=== PATIENT | female | born 1950 | race Caucasian/White ===

== ENCOUNTER 2017-06-14 05:26 | Day surgery (SDC) | payer MEDICARE, BC ==
[2017-06-14] MEDS ORDERED: Dextrose 5%-Lactated Ringers 1,000 ML IV SCH (06:00)
[2017-06-14] MEDS ORDERED: Bupivacaine 0.5% 50 ML MDV ONE (06:39)
[2017-06-14] MEDS ORDERED: Lidocaine 1% with EPINEPHrine 1:100,000 50 ML MDV ONE (06:39)
[2017-06-14] MEDS ORDERED: Midazolam 1 MG/ML 2 ML SDV ONE (06:57)
[2017-06-14] MEDS ORDERED: Propofol 200 MG/20 ML SDV ONE (06:57)
[2017-06-14] MEDS ORDERED: fentaNYL 100 MCG/2 ML SDV ONE (06:57)
[2017-06-14 09:12] VITALS: BP 112/58
--- NOTE | 2017-06-23 14:06 | OR ---
DATE OF PROCEDURE: 06/14/2017 PREOPERATIVE DIAGNOSIS: Right cervical lymphadenopathy. 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 OPERATIVE PROCEDURE: Exploration of right neck with: 1. Excision of probable ectopic parotid gland mass (11512). 2. Right cervical lymph node biopsy ([id number]). ANESTHESIA: Local plus IV sedation. ASSISTANTS: 1. ANDRES [place]. 2. ANDRES Nuñez. INDICATION FOR PROCEDURE: A 66-year-old presenting with what appeared to be an enlarged lymph node located just inferior to the lower edge of the parotid gland in the right neck. Plan is to proceed with an excision of this. Potential risks including bleeding, infection, possible recurrence of the process, and injury to the nerves in the area were all reviewed, and the patient wishes to proceed. DETAILS OF PROCEDURE: The patient was taken to the operating room and placed in the supine position with the neck extending some toward the right side. The ultrasound was used to confirm the presence of the lymph node as seen on the preoperative imaging. That area was then prepped and draped. A linear incision in the skin lines in the upper neck at a point just posterior to the lower edge of the parotid gland was made and carried down somewhat inferiorly. This was carried down through the skin, subcutaneous tissue, and the platysmal layers, and following this, the dissection came onto the area of the lymph node. There appeared to be some attachment of a mass-like effect, more or less extending with a very tenuous loose attachment to the parotid gland suggestive of some ectopic parotid gland tissue. This was excised along with the adjacent lymph node, and this sent as a unified specimen with the excision then being accomplished with electrocautery as needed. The area was inspected. There was no additional lymphadenopathy present and there were no additional palpable abnormalities within the parotid gland. 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 An edge of it was cut and sent for culture, and it did have a somewhat fleshy appearance, so this would also conceivably be a lymphoma at this point as well. The incision was then closed with 3-0 and 4-0 Vicryl stitch deep and a 4-0 Vicryl subcuticular stitch. Dressing was applied. The patient was taken to the recovery room in satisfactory condition. Augie Mcintosh MD /[id number]
== END 2017-06-14 09:53 | disposition home or self-care (01) ==
LOC: JP.SDS 05:26
PROVIDERS: ATTEND Surgery
DX: D36.0 Benign neoplasm of lymph nodes (principal); F32.9 Major depressive disorder, single episode, unspecified; Z88.8 Allergy status to other drugs, medicaments and biological substances
CPT/HCPCS: 38510; 42410; 76998; 87015; 87070; 87102; 87116; 87205; 87206; 88305; J2250; J2704; J3010; J7042

== ENCOUNTER 2019-12-01 16:43 | Emergency (ER) | payer MEDICARE ==
[2019-12-01 17:01] VITALS: BP 155/68; PULSE 87
--- NOTE | 2019-12-01 17:24 | EDM.PDOC ---
ED HPI GENERAL MEDICAL PROBLEM - General Chief Complaint: Lower Extremity Injury/Pain Stated Complaint: LEFT FOOT TROUBLE Time Seen by Provider: 12/01/19 17:10 Source of Information: Reports: Patient, Old Records, Provider History Limitations: Reports: No Limitations - History of Present Illness INITIAL COMMENTS - FREE TEXT/NARRATIVE: 68 yo female saw a magnetic prospecting supervisor earlier today for a skin condition on her feet and elbows. This was biopsied today. The magnetic prospecting supervisor was concerned that Kvng had a cellulitis on her L foot due to the presence of redness and increased warmth that began this past Saturday and has progressed. There has not been a fever or chills. She is not diabetic by hx. Onset: Gradual Onset Date: 11/28/19 Duration: Day(s):, Getting Worse Location: Reports: Lower Extremity, Left Quality: Reports: Dull Severity: Mild Improves with: Reports: None Worsens with: Reports: Other (time, and walking on it is more uncomfortable.) Context: Reports: Other (See HPI) Associated Symptoms: Reports: Rash (both feet and elbows). 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: Other (see below) (none) Left Feet Pain Score (Numeric/FACES): 10 - Related Data Allergies Allergy/AdvReac Type Severity Reaction Status Date / Time sertraline [From Zoloft] Allergy Diarrhea Verified 01/19/18 19:29 Home Meds: Home Meds oxyCODONE HCl/Acetaminophen [oxyCODONE-Acetaminophen 5-325] 1 tab PO Q6HR PRN 11/12/12 [History] traZODone 100 mg PO BEDTIME PRN 11/12/12 [History] Multivitamins,Ther w-Minerals [Therapeutic Vitamin & Mineral] 1 each PO DAILY 12/12/12 [History] Aspirin [Adult Low Dose Aspirin EC] 81 mg PO DAILY 07/07/14 [History] Sulfamethoxazole/Trimethoprim [Bactrim Ds Tablet] 1 each PO Q12H #20 tablet 12/01/19 [Rx] cephALEXin [Cephalexin] 500 mg PO QID #40 tablet 12/01/19 [Rx] Past Medical History HEENT History: Reports: Impaired 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: Musculoskeletal History: Reports: Other (See Below) Other Musculoskeletal History: fx pelvis Psychiatric History: Reports: Depression Oncologic (Cancer) History: Reports: Breast - Infectious Disease History Infectious Disease History: Reports: Chicken Pox - Past Surgical History GI Surgical History: Reports: Cholecystectomy Social & Family History - Family History Family Medical History: Unobtainable - Tobacco Use Smoking Status *Q: Current Every Day Smoker Years of Tobacco use: 45 Packs/Tins Daily: 1 - Caffeine Use Caffeine Use: Reports: Coffee - Alcohol Use Days Per Week of Alcohol Use: 7 Number of Drinks Per Day: 2 Total Drinks Per Week: 14 - Recreational Drug Use Recreational Drug Use: No Review of Systems - Review of Systems Review Of Systems: Comprehensive ROS is negative, except as noted in HPI. Constitutional: Reports: No Symptoms Skin: Reports: Rash (both feet and elbows, subacute), Erythema (L foot up to level of ankle). Denies: Wound Neurological: Reports: No Symptoms ED EXAM, GENERAL - Physical Exam Exam: See Below Exam Limited By: No Limitations General Appearance: Alert, WD/WN, No Apparent Distress Eye Exam: Right Eye: Normal Inspection Ears: Normal External Exam, Normal Canal, Hearing Grossly Normal Ear Exam: Bilateral Ear: Auricle Normal, Canal Normal Nose: Normal Inspection Throat/Mouth: Normal Inspection, Normal Voice Head: Atraumatic, Normocephalic Neck: Normal Inspection Respiratory/Chest: No Respiratory Distress, Lungs Clear, Normal Breath Sounds, No Accessory Muscle Use Cardiovascular: Regular Rate, Rhythm, No Edema Extremities: Increased Warmth (L foot), Redness (L foot). No: Pedal Edema, Limited Range of Motion Neurological: Alert, Oriented, CN II-XII Intact, Normal Cognition, No Motor/Sensory Deficits Psychiatric: Normal Affect, Normal Mood Skin Exam: Warm, Dry, Intact, Erythema (L foot), Increased Warmth (L foot), Rash (both feet and elbows). No: Normal Color, No Rash, Diaphoretic, Ecchymosis, Lymphangitis, Petechiae, Wound/Incision, Zoster-Like Rash Course - Vital Signs Last Recorded V/S: Last Vital Signs Temp 36.4 C 12/01/19 17:00 Pulse 87 12/01/19 17:00 Resp 16 12/01/19 17:00 BP 155/68 H 12/01/19 17:00 Pulse Ox 95 12/01/19 17:00 - Orders/Labs/Meds Orders: Active Orders 24 hr Category Date Time Status BASIC METABOLIC PANEL,BMP [CHEM] Stat Lab 12/01/19 17:29 Received CRP [C-REACTIVE PROTEIN] [CHEM] Stat Lab 12/01/19 17:29 Received Labs: Laboratory Tests 12/01/19 Range/Units 17:29 WBC 8.2 (4.5-11.0) K/uL RBC 4.43 (3.30-5.50) M/uL Hgb 12.3 (12.0-15.0) g/dL Hct 39.1 (36.0-48.0) % MCV 88 (80-98) fL MCH 28 (27-31) pg MCHC 32 (32-36) % Plt Count 294 (150-400) K/uL Meds: Medications Discontinued Medications Generic Name Dose Route Start Last Admin Trade Name Freq PRN Reason Stop Dose Admin Ceftriaxone Sodium 1 gm 12/01/19 17:42 Rocephin IM 12/01/19 17:43 ONETIME ONE Trimethoprim/Sulfamethoxazole 1 tab 12/01/19 17:42 Septra Ds PO 12/01/19 17:43 ONETIME ONE Departure - Departure Time of Disposition: 18:10 Disposition: Home, Self-Care 01 Condition: Fair Clinical Impression: Cellulitis of left foot - Discharge Information *PRESCRIPTION DRUG MONITORING PROGRAM REVIEWED*: Not Applicable *COPY OF PRESCRIPTION DRUG MONITORING REPORT IN PATIENT RIKKI: Not Applicable Prescriptions: Sulfamethoxazole/Trimethoprim [Bactrim Ds Tablet] 1 each PO Q12H #20 tablet cephALEXin [Cephalexin] 500 mg PO QID #40 tablet Instructions: Cellulitis, Adult, [id number] Referrals: Darian Calderon MD [Primary Care Provider] - Forms: ED Department Discharge Additional Instructions: Take TMP/SMZ every 12 hrs, next dose tomorrow morning until gone. Take cephalexin every 6 hrs next dose at suppertime tomorrow. Take acetaminophen as needed for pain control. Elevate your left foot above your heart as much as possible. Soaking your foot in warm soapy water several times a day is advised. Recheck in the next couple of days to make sure you are improving. Return here if a fever develops. Sepsis Event Note (ED) - Focused Exam Vital Signs: Vital Signs Temp Pulse Resp BP Pulse Ox 12/01/19 17:00 36.4 C 87 16 155/68 H 95 - My Orders Last 24 Hours: My Active Orders 12/01/19 17:29 BASIC METABOLIC PANEL,BMP [CHEM] Stat CRP [C-REACTIVE PROTEIN] [CHEM] Stat - Assessment/Plan Last 24 Hours: My Active Orders 12/01/19 17:29 BASIC METABOLIC PANEL,BMP [CHEM] Stat CRP [C-REACTIVE PROTEIN] [CHEM] Stat
[2019-12-01] MEDS ORDERED: Sulfamethoxazole/Trimethoprim 800-160 MG Tab PO ONE (17:42)
[2019-12-01] MEDS ORDERED: cefTRIAXone 1 GM Vial IM ONE (17:42)
[2019-12-01] MEDS ORDERED: Lidocaine 1% PF 2 ML SDV INJECT ONE (18:01)
== END 2019-12-01 18:21 | disposition home or self-care (01) ==
LOC: JP.ED 16:43
DX: L03.116 Cellulitis of left lower limb (principal); F17.210 Nicotine dependence, cigarettes, uncomplicated; Z88.8 Allergy status to other drugs, medicaments and biological substances; Z79.82 Long term (current) use of aspirin; Z79.899 Other long term (current) drug therapy; Z90.49 Acquired absence of other specified parts of digestive tract
CPT/HCPCS: 36415; 80048; 85027; 86140; 96372; 99283; A9270; J0696; J2001

== ENCOUNTER 2020-04-25 06:32 | Day surgery (SDC) | payer MEDICARE ==
[2020-04-25] MEDS ORDERED: Dextrose 5%-Lactated Ringers 1,000 ML IV SCH (06:45)
[2020-04-25] MEDS ORDERED: Propofol 200 MG/20 ML SDV ONE (07:26)
[2020-04-25] MEDS ORDERED: Midazolam 1 MG/ML 2 ML SDV ONE (07:26)
[2020-04-25] MEDS ORDERED: fentaNYL 100 MCG/2 ML SDV ONE (07:26)
[2020-04-25 09:35] VITALS: BP 133/72; PULSE 59
--- NOTE | 2020-05-01 11:37 | OR ---
DATE OF PROCEDURE: 04/25/2020 SURGEON: Augie Mcintosh MD PREOPERATIVE DIAGNOSIS: History of colon polyps and breast carcinoma. POSTOPERATIVE DIAGNOSIS: A single 2-mm recurrent rectal polyp. OPERATIVE PROCEDURE: Flexible colonoscopy with polypectomy by snare technique. ANESTHESIA: IV sedation. INDICATION FOR PROCEDURE: A 69-year-old female presenting for a followup screening colonoscopy. She has both history of colon polyps as well as history of breast carcinoma. Plan is to proceed with a flexible colonoscopy with biopsies and/or polypectomy as indicated. Potential risks including bleeding and perforation were discussed, and the patient wishes to proceed. DETAILS OF PROCEDURE: The patient was taken to the operating room and placed in a left lateral decubitus position. IV sedation was administered, after which the initial digital rectal exam was performed and was unremarkable. Colonoscope was then passed to the level of the rectum with retroflexion revealing uncomplicated hemorrhoidal columns. Scope was eventually passed to the level of the cecum. Prep was quite good with only a small amount of liquid stool being present. To that level, there were no diverticula and no areas of colitis. A single polyp was noted around 10 cm from the dentate line i.e. within the distal rectum. This measured around 2 mm and was excised by means of cautery snare technique. There were no areas of neoplastic changes evident. Good hemostasis of polypectomy site was seen, and the procedure was then concluded. If the present polyp is adenomatous, the patient should undergo a colonoscopy in 3 years. If it is hyperplastic or otherwise nonneoplastic, then the next colonoscopy should be in 5 years. Augie Mcintosh MD /[id number]
== END 2020-04-25 09:54 | disposition home or self-care (01) ==
LOC: JP.SDS 06:32
PROVIDERS: ATTEND Surgery
DX: Z12.11 Encounter for screening for malignant neoplasm of colon (principal); K62.1 Rectal polyp; Z85.3 Personal history of malignant neoplasm of breast; K64.9 Unspecified hemorrhoids
CPT/HCPCS: 88305; J2250; J2704; J3010; J7121

== ENCOUNTER 2020-11-24 07:37 | Day surgery (SDC) | payer MEDICARE ==
[2020-11-24] MEDS ORDERED: Sodium Chloride 0.9% 10 ML Syringe FLUSH PRN (08:00)
[2020-11-24 08:42] VITALS: BP 130/75; PULSE 72
--- NOTE | 2020-12-02 13:06 | OR ---
DATE OF PROCEDURE: 11/24/2020 SURGEON: Alpa Chester MD POSTOPERATIVE CARE: Postoperative care will be provided mainly at the [address] [place] [address] [facility] in conjunction with [facility]. PREOPERATIVE DIAGNOSIS: Cataract, left eye. POSTOPERATIVE DIAGNOSIS: Cataract, left eye. PROCEDURE: Phacoemulsification with intraocular lens placement, left eye. ANESTHESIA: Topical and intracameral. ESTIMATED BLOOD LOSS: Minimal. COMPLICATIONS: None. PATHOLOGY SPECIMENS: None. SURGICAL FINDINGS: None. INDICATION FOR PROCEDURE: The patient is a 69-year-old female with history of a visually significant cataract in the left eye, which interfered with activities of daily living. This consisted of a nuclear sclerosis cataract. Following careful discussion of the risks, benefits and alternatives to cataract extraction with intraocular lens placement including blindness and , the patient elected to proceed, and informed, written consent was obtained prior to the procedure. DESCRIPTION OF THE PROCEDURE: The patient was previously identified, and a gianni placed above the left eye. All sources, including the patient, indicated that the left eye was the correct eye. The patient was subsequently taken to the operating room where standard monitors were applied. The patient was then prepped and draped in the usual sterile fashion for ophthalmic surgery. Attention was first directed at the 12 o'clock position where a paracentesis port was fashioned. Shugar solution followed by Viscoat was instilled into the eye. Attention was then directed to the 8:30 position where a triplanar incision was made in a near-clear manner using a keratome. A continuous capsulorrhexis was then made using a combination of the cystotome and Utrata forceps. Hydrodissection was achieved using a balanced salt solution, and the lens rotated nicely. Phacoemulsification was then done using a modified [id number] technique without complication. Phaco time was 6.65 CDE. The remaining cortex was removed using the irrigation/aspiration handpiece. Provisc was then instilled into the eye. A Technis lens, model PCB00, at 16.0 diopters was then placed in the capsular bag using an [place] injector. The remaining viscoelastic was removed using the irrigation/aspiration forceps. All wounds were then checked and found to be watertight. The lid speculum and drapes were removed. Maxitrol ointment was placed in the patient's left eye, and the eye was shielded. The patient tolerated the procedure well. The patient was instructed to follow up tomorrow. All needle and sponge counts were correct at the end of the procedure. There were no surgical findings. Alpa Chester MD /[id number]
== END 2020-11-24 08:57 | disposition home or self-care (01) ==
LOC: JP.SDS 07:37
PROVIDERS: ATTEND Ophthalmology
DX: H26.9 Unspecified cataract (principal)
CPT/HCPCS: 66984; V2632

== ENCOUNTER 2020-12-15 06:56 | Day surgery (SDC) | payer MEDICARE ==
[2020-12-15] MEDS: Sodium Chloride 0.9% 10 ML Syringe FLUSH PRN (07:28)
[2020-12-15 08:51] VITALS: BP 136/70; PULSE 57
--- NOTE | 2020-12-16 13:47 | OR ---
DATE OF PROCEDURE: 12/15/2020 SURGEON: Alpa Chester MD POSTOPERATIVE CARE: Postoperative care will be provided mainly at the [address] [place] [address] [facility] in conjunction with [facility]. PREOPERATIVE DIAGNOSIS: Cataract, right eye. POSTOPERATIVE DIAGNOSIS: Cataract, right eye. PROCEDURE: Phacoemulsification with intraocular lens placement, right eye. ANESTHESIA: Topical and intracameral. ESTIMATED BLOOD LOSS: Minimal. COMPLICATIONS: None. PATHOLOGY SPECIMENS: None. SURGICAL FINDINGS: None. INDICATION FOR PROCEDURE: The patient is a 69-year-old female with history of a visually significant cataract in the right eye, which interfered with activities of daily living. This consisted of a nuclear sclerosis cataract. Following careful discussion of the risks, benefits and alternatives to cataract extraction with intraocular lens placement including blindness and , the patient elected to proceed, and informed, written consent was obtained prior to the procedure. DESCRIPTION OF THE PROCEDURE: The patient was previously identified, and a gianni placed above the right eye. All sources, including the patient, indicated that the right eye was the correct eye. The patient was subsequently taken to the operating room where standard monitors were applied. The patient was then prepped and draped in the usual sterile fashion for ophthalmic surgery. Attention was first directed at the 12 o'clock position where a paracentesis port was fashioned. Shugar solution followed by Viscoat was instilled into the eye. Attention was then directed to the 8:30 position where a triplanar incision was made in a near-clear manner using a keratome. A continuous capsulorrhexis was then made using a combination of the cystotome and Utrata forceps. Hydrodissection was achieved using a balanced salt solution, and the lens rotated nicely. Phacoemulsification was then done using a modified [id number] technique without complication. Phaco time was 6.55 CDE. The remaining cortex was removed using the irrigation/aspiration handpiece. Provisc was then instilled into the eye. A Technis lens, model DCB00, at 16.0 diopters was then placed in the capsular bag using an [place] injector. The remaining viscoelastic was removed using the irrigation/aspiration forceps. All wounds were then checked and found to be watertight. The lid speculum and drapes were removed. Maxitrol ointment was placed in the patient's right eye, and the eye was shielded. The patient tolerated the procedure well. The patient was instructed to follow up tomorrow. All needle and sponge counts were correct at the end of the procedure. There were no surgical complications. Alpa Chester MD /[id number]
== END 2020-12-15 08:59 | disposition home or self-care (01) ==
LOC: JP.SDS 06:56
PROVIDERS: ATTEND Ophthalmology
DX: H25.11 Age-related nuclear cataract, right eye (principal)
CPT/HCPCS: V2632

== ENCOUNTER 2021-06-22 11:01 | Emergency (ER) | payer MEDICARE ==
[2021-06-22 12:42] VITALS: BP 125/75; PULSE 65
== END 2021-06-22 13:13 | disposition home or self-care (01) ==
LOC: JP.ED 11:01
DX: M31.6 Other giant cell arteritis (principal); Z88.8 Allergy status to other drugs, medicaments and biological substances; Z88.5 Allergy status to narcotic agent; Z86.16 Personal history of COVID-19; Z72.0 Tobacco use
CPT/HCPCS: 36415; 80048; 85027; 85651; 99282; 99284

== ENCOUNTER 2021-07-20 08:28 | Day surgery (SDC) | payer MEDICARE ==
[2021-07-20] MEDS ORDERED: Lactated Ringers 1,000 ML IV SCH (09:00)
[2021-07-20] MEDS ORDERED: fentaNYL 100 MCG/2 ML SDV ONE ×2 (09:44→11:24)
[2021-07-20] MEDS ORDERED: Midazolam 1 MG/ML 2 ML SDV ONE (09:45)
[2021-07-20] MEDS ORDERED: Propofol 200 MG/20 ML SDV ONE ×2 (09:45→11:31)
[2021-07-20] MEDS ORDERED: Lidocaine 1% with EPINEPHrine 1:100,000 50 ML MDV ONE (10:53)
[2021-07-20] MEDS ORDERED: Bacitracin Oint 1 GM U/D Packet ONE (10:53)
[2021-07-20 13:05] VITALS: BP 106/63; PULSE 58
== END 2021-07-20 13:15 | disposition home or self-care (01) ==
LOC: JP.SDS 08:28
PROVIDERS: ATTEND Surgery
DX: I77.89 Other specified disorders of arteries and arterioles (principal); E78.5 Hyperlipidemia, unspecified; F17.200 Nicotine dependence, unspecified, uncomplicated; F32.A Depression, unspecified
CPT/HCPCS: 37609; 76998; 88305; 88313; J2250; J2704; J3010; J7120